=== PATIENT | female | born 1965 | race Caucasian/White ===

== ENCOUNTER 2021-09-03 09:01 | Outpatient (CLI) | payer BC | END 2021-09-03 09:02 | disposition home or self-care (01) | LOC: BICMAMMO 09:01 | PROVIDERS: ATTEND Nurse Practitioner Family | DX: Z12.31 Encounter for screening mammogram for malignant neoplasm of breast (principal); Z13.820 Encounter for screening for osteoporosis | CPT/HCPCS: 77063; 77067; 77080 ==

== ENCOUNTER 2023-03-12 08:48 | Outpatient (CLI) | payer BC | END 2023-03-12 08:49 | disposition home or self-care (01) | LOC: BICMAMMO 08:48 | PROVIDERS: ATTEND Nurse Practitioner Family | DX: Z12.31 Encounter for screening mammogram for malignant neoplasm of breast (principal) | CPT/HCPCS: 77063; 77067 ==

== ENCOUNTER 2024-03-26 13:34 | Outpatient (CLI) | payer BC | END 2024-03-26 13:35 | disposition home or self-care (01) | LOC: BICMAMMO 13:34 | DX: Z12.31 Encounter for screening mammogram for malignant neoplasm of breast (principal) | CPT/HCPCS: 77063; 77067 ==